=== PATIENT | female | born 1985 | race Caucasian/White ===

== ENCOUNTER 2017-10-26 17:27 | Observation (INO) | payer OTHER ==
[2017-10-26 18:32] LABS: AUTOMATED NEUTROPHIL # 8.1 TH/MM3 (1.8-7.7); BASOPHIL # 0.1 TH/MM3 (0-0.2); BASOPHIL % 0.4 % (0.0-2.0); EOSINOPHIL # 0.1 TH/MM3 (0-0.4); HEMATOCRIT 41.9 % (35.0-46.0); HEMO FLAGS DIFF FINAL; HEMOGLOBIN 14.4 GM/DL (11.6-15.3); LYMPH % 28.5 % (9.0-44.0); LYMPHOCYTE # 3.5 TH/MM3 (1.0-4.8); MEAN CELL VOLUME 87.1 FL (80.0-100.0); MEAN CORPUSCULAR HGB CONC 34.4 % (32.0-36.0); MEAN PLATELET VOLUME 8.7 FL (7.0-11.0); MONOCYTE # 0.5 TH/MM3 (0-0.9); NEUT % 66.1 % (16.0-70.0); PLATELET COUNT 297 TH/MM3 (150-450); RED BLOOD COUNT 4.81 MIL/MM3 (4.00-5.30); RED CELL DISTRIBUTION WIDTH 13.9 % (11.6-17.2); WHITE BLOOD COUNT 12.2 TH/MM3 (4.0-11.0)
[2017-10-26 19:14] LABS: ALBUMIN 4.3 GM/DL (3.4-5.0); ALKALINE PHOSPHATASE 44 U/L (45-117); ALT (GPT) 17 U/L (10-53); ANION GAP 9 MEQ/L (5-15); AST (GOT) 15 U/L (15-37); BICARBONATE 25.7 MEQ/L (21.0-32.0); BLOOD UREA NITROGEN 6 MG/DL (7-18); CALCIUM 9.6 MG/DL (8.5-10.1); CHLORIDE 104 MEQ/L (98-107); GLOMERULAR FILTRATION RATE 82 ML/MIN (>89); GLUCOSE,RANDOM 95 MG/DL (74-106); POTASSIUM 3.7 MEQ/L (3.5-5.1); SODIUM (NA) 139 MEQ/L (136-145); TOTAL BILIRUBIN ADULT 0.2 MG/DL (0.2-1.0); TOTAL PROTEIN 7.8 GM/DL (6.4-8.2)
[2017-10-26] MEDS: IOHEXOL 350 MG/ML 10 ML VIAL (for RAD DIAG) IVCONTRAST (19:15)
[2017-10-26] MEDS ORDERED: LACTULOSE SYRUP 20 GM/30 ML CUP PO (20:45)
[2017-10-26] MEDS ORDERED: SENNOSIDES 8.6 MG TAB PO (20:45)
[2017-10-26] MEDS ORDERED: NALOXONE HCL 0.4 MG/ML AMP IV PUSH (20:45)
[2017-10-26] MEDS ORDERED: MAGNESIUM HYDROXIDE SUSP 30 ML CUP PO (20:45)
[2017-10-26] MEDS ORDERED: BISACODYL 10 MG SUPP RECTAL (20:45)
[2017-10-26] MEDS ORDERED: SODIUM CHLORIDE 0.9% FLUSH 10 ML FLUSH IV FLUSH (20:45)
[2017-10-26] MEDS: lamoTRIgine 100 MG TAB PO (21:00)
[2017-10-26] MEDS: SODIUM CHLOR 0.9% 1000 ML INJ 1,000 ML IV (21:03)
[2017-10-26] MEDS: SODIUM CHLORIDE 0.9% FLUSH 10 ML FLUSH IV FLUSH (21:03)
[2017-10-26] MEDS: clonazePAM 1 MG TAB PO (21:03)
[2017-10-27] MEDS: ONDANSETRON HCL 4 MG/2 ML VIAL IVP ×2 (00:59→07:18)
[2017-10-27] MEDS: ACETAMINOPHEN/HYDROcodone 325 MG/5 MG TAB PO ×3 (00:59→14:34)
[2017-10-27] MEDS: SODIUM CHLOR 0.9% 1000 ML INJ 1,000 ML IV (06:11)
[2017-10-27 07:12] LABS: AUTOMATED NEUTROPHIL # 4.5 TH/MM3 (1.8-7.7); BASOPHIL % 0.2 % (0.0-2.0); EOSINOPHIL # 0.2 TH/MM3 (0-0.4); EOSINOPHIL % 2.2 % (0.0-4.0); HEMATOCRIT 39.3 % (35.0-46.0); HEMO FLAGS DIFF FINAL; HEMOGLOBIN 13.5 GM/DL (11.6-15.3); LYMPH % 42.6 % (9.0-44.0); LYMPHOCYTE # 3.9 TH/MM3 (1.0-4.8); MEAN CELL VOLUME 87.3 FL (80.0-100.0); MEAN CORPUSCULAR HGB CONC 34.4 % (32.0-36.0); MEAN PLATELET VOLUME 8.6 FL (7.0-11.0); MONO % 6.3 % (0.0-8.0); MONOCYTE # 0.6 TH/MM3 (0-0.9); NEUT % 48.7 % (16.0-70.0); PLATELET COUNT 272 TH/MM3 (150-450); RED BLOOD COUNT 4.51 MIL/MM3 (4.00-5.30); RED CELL DISTRIBUTION WIDTH 13.8 % (11.6-17.2); WHITE BLOOD COUNT 9.2 TH/MM3 (4.0-11.0)
[2017-10-27 07:29] LABS: ALBUMIN 3.5 GM/DL (3.4-5.0); ALT (GPT) 15 U/L (10-53); ANION GAP 10 MEQ/L (5-15); AST (GOT) 8 U/L (15-37); BICARBONATE 24.4 MEQ/L (21.0-32.0); BLOOD UREA NITROGEN 7 MG/DL (7-18); CALCIUM 8.6 MG/DL (8.5-10.1); CHLORIDE 107 MEQ/L (98-107); GLOMERULAR FILTRATION RATE 96 ML/MIN (>89); GLUCOSE,RANDOM 86 MG/DL (74-106); POTASSIUM 3.9 MEQ/L (3.5-5.1); SODIUM (NA) 141 MEQ/L (136-145)
[2017-10-27 07:33] LABS: ALKALINE PHOSPHATASE 37 U/L (45-117); TOTAL BILIRUBIN ADULT 0.1 MG/DL (0.2-1.0); TOTAL PROTEIN 6.5 GM/DL (6.4-8.2)
[2017-10-27] MEDS: SODIUM CHLORIDE 0.9% FLUSH 10 ML FLUSH IV FLUSH (09:00)
[2017-10-27] MEDS: clonazePAM 1 MG TAB PO (09:24)
[2017-10-27] MEDS: lamoTRIgine 100 MG TAB PO (09:24)
[2017-10-27] MEDS ORDERED: ACETAMINOPHEN 325 MG TAB PO (10:30)
[2017-10-27] MEDS ORDERED: TEMAZEPAM 15 MG CAP PO (10:30)
[2017-10-27] MEDS: ONDANSETRON HCL 4 MG/2 ML VIAL IV PUSH (14:34)
[2017-10-27] MEDS ORDERED: SILVER SULFADIAZINE/LIDOCAINE CREAM 60 GM JAR RECTAL (21:00)
== END 2017-10-27 18:38 | disposition home or self-care (01) ==
LOC: NEPE 17:27 → NEDA 20:24 → NEPHCDU 21:51
DX: K62.89 Other specified diseases of anus and rectum (principal); K62.5 Hemorrhage of anus and rectum; F41.9 Anxiety disorder, unspecified; K64.5 Perianal venous thrombosis; G40.909 Epilepsy, unspecified, not intractable, without status epilepticus; N83.209 Unspecified ovarian cyst, unspecified side; R63.0 Anorexia; R63.4 Abnormal weight loss; Z80.3 Family history of malignant neoplasm of breast; Z82.49 Family history of ischemic heart disease and other diseases of the circulatory system
CPT/HCPCS: 74177; 80053; 85025; 96361; 96374; 96376; 99285